=== PATIENT | female | born 1960 | race Caucasian/White ===

== ENCOUNTER → 2024-12-13 | Outpatient (CLI) | payer MEDICARE, SELFPAY ==
--- NOTE | 2024-12-13 | XR_ITS ---
Examination: Abdomen AP single view Technique: AP portable supine abdomen, single view Exam date and time: December 13, 2024, 11:13 a.m. INDICATIONS: Abdominal pain beginning 40 years ago. FINDINGS: Moderate to large amounts of stool throughout the colon No obstruction No free air Surgical clips upper right abdomen Calcific density in the pelvis which may represent a bladder calculus, measuring 20 mm IMPRESSION: Moderate to large amounts of stool throughout the colon Recommend bladder sonography to confirm 20 mm bladder calculus
== END | disposition home or self-care (01) ==
PROVIDERS: Referring Provider Specialist; Visit Provider Specialist
DX: K59.00 Constipation, unspecified (principal); N32.89 Other specified disorders of bladder
CPT/HCPCS: 74018